=== PATIENT | female | born 2005 | race Two or more races ===

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

== ENCOUNTER 2025-05-27 09:04 | Emergency (ER) | payer OTHER ==
[2025-05-27] MEDS: Acetaminophen/HYDROcodone 325-5 MG Tab PO ONE (09:31)
[2025-05-27 09:49] LABS: BASOPHILS ABSOLUTE AUTO 0.07 K/uL (0.00-0.30); BASOPHILS PERCENT AUTO 0.5 % (0.0-1.0); EOSINOPHILS ABSOLUTE AUTO 0.07 K/uL (0.00-0.70); EOSINOPHILS PERCENT AUTO 0.5 % (0.0-5.0); IMMATURE GRAN ABSOLUTE AUTO 0.03 K/uL (0.00-0.05); IMMATURE GRAN PERCENT AUTO 0.2 % (0.0-0.4); LYMPHOCYTES ABSOLUTE AUTO 1.75 K/uL (2.00-8.80); LYMPHOCYTES PERCENT AUTO 13.7 % (50.0-65.0); MEAN PLATELET VOLUME 10.6 fL (9.4-12.3); MONOCYTES ABSOLUTE AUTO 0.69 K/uL (0.10-1.40); MONOCYTES PERCENT AUTO 5.4 % (2.0-10.0); NEUTROPHILS ABSOLUTE AUTO 10.19 K/uL (1.50-8.50); NEUTROPHILS PERCENT AUTO 79.7 % (35.0-45.0); NRBC ABSOLUTE 0.00 K/uL (0.00-0.03); NRBC PERCENT 0.0 /100WBC (0.0-0.2); PLATELET COUNT,PLT 268 K/uL (150-400); RED BLOOD CELL COUNT 4.85 M/uL (4.10-5.30); WHITE BLOOD CELL COUNT,WBC 12.80 K/uL (4.5-13.5)
[2025-05-27 10:27] LABS: APPEARANCE,URINE CLOUDY; GLUCOSE,URINE NEGATIVE (NEGATIVE); OCCULT BLOOD,URINE LARGE (NEGATIVE)
[2025-05-27 10:33] LABS: EPITHELIAL CELLS,URINE FEW (NONE-FEW)
[2025-05-27 10:44] LABS: A/G RATIO 1.4 (0.9-1.6); ALANINE AMINOTRANSFERASE,ALT 16.0 IU/L (14-63); ASPARTATE AMNIOTRANSFERASE,AST 11.0 IU/L (15-37); BILIRUBIN TOTAL 0.5 mg/dL (0.2-1.0); BLOOD UREA NITROGEN,BUN 10.0 mg/dL (7.0-18.0); CARBON DIOXIDE,CO2 22.0 mmol/L (21.0-32.0); CHLORIDE,CL 106.0 mmol/L (98-107); CREATININE 0.8 mg/dL (0.6-1.0); EST CRCL DRUG DOSING (CG) 77.75 mL/min; ESTIMATED GFR 109.0 mL/min (>60); GLUCOSE RANDOM 86.0 mg/dL (74-106); POTASSIUM,K 3.9 mmol/L (3.5-5.1); PROTEIN TOTAL,TP 8.0 g/dL (6.4-8.2); SODIUM,NA 141.0 mmol/L (136-145)
[2025-05-27] MEDS: Iopamidol 755 MG/ML 500 ML Multipack Bottle IVPUSH STA ×2 (10:58)
[2025-05-27 11:13] LABS: CANDIDA DNA PROBE NEGATIVE (NEGATIVE); GARDNERELLA DNA PROBE POSITIVE (NEGATIVE); TRICHOMONAS DNA PROBE NEGATIVE (NEGATIVE)
[2025-05-27 11:54] LABS: C. TRACHOMATIS BY PCR NOT DETECTED; N. GONORRHOEAE BY PCR NOT DETECTED
[2025-05-27 12:04] VITALS: BP 108/73; PULSE 93
== END 2025-05-27 12:56 | disposition home or self-care (01) ==
LOC: MW.ED 09:04
DX: N76.0 Acute vaginitis (principal); N39.0 Urinary tract infection, site not specified; Z91.0110 Allergy to milk products, unspecified
CPT/HCPCS: 36415; 74177; 74177-26; 76857; 76857-26; 80053; 81001; 84703; 85025; 87086; 87480; 87491; 87510; 87591; 87660; 99284; A9270-GY; Q9967